=== PATIENT | female | born 1975 | race Caucasian/White ===

== ENCOUNTER 2016-11-04 14:08 | Emergency (ER) | payer MEDICAID, OTHER ==
[~2016-11-04] VITALS: Ht 162.6 cm; Wt 45.4 kg
[2016-11-04 14:27] VITALS: BP 146/76
== END 2016-11-04 17:02 | disposition left against medical advice (07) ==
LOC: ER 14:15
DX: M79.605 Pain in left leg (principal); Z53.21 Procedure and treatment not carried out due to patient leaving prior to being seen by health care provider